=== PATIENT | male | born 1980 | race African-American/Black ===

== ENCOUNTER 2025-05-03 21:10 | Emergency (ER) | payer MEDICAID ==
[~2025-05-03] VITALS: Ht 167.6 cm; Wt 100.0 kg
[2025-05-03 21:15] VITALS: BP 163/98; PULSE 98; RESP 16; TEMP 36.8; O2SAT 99
[2025-05-03 22:32] VITALS: TEMP 98.2
[2025-05-03] MEDS: ONDANSETRON HCL 4MG TABLET PO ONE (22:32)
[2025-05-03] MEDS: ACETAMINOPHEN 325MG TABLET PO ONE (22:32)
[2025-05-03 23:07] LABS: BASOPHILS % 0.3 % (0.0-2.0); EOSINOPHILS % 0.1 % (0.0-5.0); HEMATOCRIT. 40.7 % (42.0-52.0); HEMOGLOBIN. 13.2 g/dL (14.0-18.0); LYMPHOCYTES % 13.2 % (20.0-50.0); MEAN PLATELET VOLUME 9.8 fl (7.4-10.4); MONOCYTES % 4.1 % (2.0-8.0); NEUTROPHILS % 82.3 % (40.0-76.0); PLATELET 318 x1000/uL (130-400); RED BLOOD CELL COUNT 4.59 mill/uL (4.7-6.1); RED CELL DISTRIBUTION WIDTH 19.3 % (11.6-14.6)
[2025-05-03 23:19] LABS: CREATININE 1.1 mg/dL (0.6-1.3); UREA NITROGEN BLOOD 8 mg/dL (9-23)
[2025-05-03 23:21] LABS: ASPARTATE AMINOTRANSFERASE 19 IU/L (<34); BILIRUBIN DIRECT < 0.1 mg/dL (<=3.0); BILIRUBIN TOTAL 0.4 mg/dL (0.1-1.0); PROTEIN TOTAL 7.6 g/dL (6.0-8.3)
[2025-05-03 23:38] LABS: CLARITY URINE CLEAR (CLEAR); COLOR URINE YELLOW (YELLOW); GLUCOSE URINE 3+ (NEGATIVE); KETONES URINE 2+ (NEGATIVE); LEUKOCYTE ESTERASE URINE NEGATIVE (NEGATIVE); NITRITE URINE NEGATIVE (NEGATIVE); OCCULT BLOOD URINE NEGATIVE (NEGATIVE); PH URINE 7.0 (4.5-8.0); PROTEIN URINE NEGATIVE (NEGATIVE); SPECIFIC GRAVITY URINE 1.019 (1.005-1.030); UROBILINOGEN URINE 0.2 E.U./dL (0.2-1.0)
[2025-05-03] MEDS: KETOROLAC 15MG/ML VIAL IM ONE (23:38)
[2025-05-03 23:44] LABS: HCG SCREEN NEGATIVE
[2025-05-04] MEDS: POTASSIUM CHLORIDE 20MEQ/PACKET PO ONE (00:42)
[2025-05-04 00:48] LABS: RBC URINE 0-2 /hpf (0-2); SQUAMOUS EPITHELIAL CELL URINE FEW /lpf (RARE/1+); WBC URINE 0-2 /hpf (0-2)
[2025-05-04 00:49] LABS: BACTERIA URINE NONE SEEN
== END 2025-05-04 00:54 | disposition home or self-care (01) ==
LOC: ER 21:10
DX: G43.909 Migraine, unspecified, not intractable, without status migrainosus (principal)
CPT/HCPCS: 99284; 80076; 80048; 81003; 84703; 83690; 85025; 36415; 96372; J1885; Q0162